=== PATIENT | male | born 1930 | race Caucasian/White ===

== ENCOUNTER 2019-01-12 10:21 | Day surgery (SDC) | payer MEDICARE ==
[2019-01-11 10:48] VITALS: BMI 25.0
--- NOTE | 2019-01-12 15:24 | OP ---
DATE OF PROCEDURE: 01/12/2019 PREPROCEDURE DIAGNOSIS: Intermittent dysphagia with regurgitation. The patient was on Plavix for his heart, which has been held for 6 days. POSTPROCEDURE DIAGNOSES: 1. Large hiatal hernia with the diaphragmatic hiatus at 44 cm from the teeth and the proximal gastric folds and Z-line denoting the lower esophagus at 35 cm, about a 9 cm hiatal hernia. There is a small paraesophageal component. There are no signs to suggest recurrent incarceration. No ischemic changes or ulcers or erosions in the hernia sac. 2. There is a shallow Schatzki's ring. This was dilated with 20-mm balloon with really no effect. The balloon could be blown up in its lumen. 3. He has mild tightness in the proximal esophagus, which was dilated with 18-mm Savary dilator. RECOMMENDATIONS: 1. I would restart him on a PPI and keep him on that daily and see if this helps his regurgitation symptoms and also I have asked him to eat and he should drink plenty of liquids with his meals. He will follow up in the office in 3-4 weeks to see if this has helped. I suspect the medicine will probably help more than the dilation as was nothing really tight to dilate. 2. Alternative would be to consider surgical repair of this, but with the patient's advanced age, cardiac disease, and the large size of the hernia, I would not recommend this. ANESTHESIA: TIVA. PROCEDURE IN DETAIL: After the patient was informed of the risk, benefits, and possible complications of endoscopy including perforation, reaction to medication, and aspiration, informed consent was obtained. The patient was brought to endoscopy suite, where he was sedated. A bite block was placed inside the orifice. The endoscope was advanced through the esophagus, stomach, and second and third portions of the duodenum. The esophagus was normal. There was no overt strictures. There was a shallow Schatzki's ring in the lower esophagus, which the scope was able to pass easily. This was at about 35 cm from the inside of orifice. There was a hiatal hernia with a partial paraesophageal component, but not a very large one. There were no signs of chronic ischemia or inflammatory changes or erosions or ulcers in the hiatal hernia sac. The hiatus was large and was at about 45 to 46 cm. This was a sliding-type hernia. The antrum of the stomach was normal as was the duodenum in 3rd and 4th portion. The scope was removed and attempted to dilate the esophagus with a 54-Kittitian Enciso dilator. In light of his dysphagia, it was made. However, we were not able to advance it very far before we would stop. I think this was because of the large hiatal hernia. Therefore, after just dilating the pharyngeal area with the Enciso, this was removed and put the scope back down. There was no effect of this dilation. At this point in time, a 20-mm balloon was used to dilate the GE junction. This showed no effect on 2nd look, but there was minimal resistance to that maneuver. The scope was removed. The patient tolerated the procedure well. There were no complications. Job ID: [id number]
[2019-01-12] MEDS ORDERED: PROPOFOL 200 MG/20 ML VIAL ONE (16:28)
[2019-01-12] MEDS ORDERED: ePHEDrine 50 MG/ML VIAL ONE (16:28)
[2019-01-12] MEDS ORDERED: PHENYLEPHRINE-NS 100 MCG/ML 10 ML SYRINGE ONE (16:28)
== END 2019-01-12 15:25 | disposition home or self-care (01) ==
LOC: SDC 10:21
PROVIDERS: ATTEND Internal Medicine Gastroenterology
PROC: 0D758ZZ Dilation of Esophagus, Via Natural or Artificial Opening Endoscopic (ICD-10-PCS; principal; 2019-01-12)
DX: K22.2 Esophageal obstruction (principal); K44.9 Diaphragmatic hernia without obstruction or gangrene; E78.5 Hyperlipidemia, unspecified; I25.10 Atherosclerotic heart disease of native coronary artery without angina pectoris; I10 Essential (primary) hypertension; M19.90 Unspecified osteoarthritis, unspecified site; E78.00 Pure hypercholesterolemia, unspecified; Z79.02 Long term (current) use of antithrombotics/antiplatelets; Z79.82 Long term (current) use of aspirin; Z79.899 Other long term (current) drug therapy; Z88.5 Allergy status to narcotic agent; Z98.1 Arthrodesis status; Z95.1 Presence of aortocoronary bypass graft; Z98.890 Other specified postprocedural states
CPT/HCPCS: J2704; J3490

== ENCOUNTER 2019-07-29 21:26 | Inpatient (IN) | payer MEDICARE ==
[2019-07-29 21:55] LABS: #Lymphocytes 0.8 thou/uL (1.20-3.40); #Monocytes 0.4 thou/uL (0.11-0.59); #Neutrophils 4.6 thou/uL (1.40-6.50); %Basophils 0.8 % (0.0-1.0); %Eosinophils 0.6 % (0.0-10.0); %Lymphocytes 13.4 % (21.0-51.0); %Monocytes 6.8 % (0.0-10.0); %Neutrophils 78.5 % (42.0-75.0); Hemoglobin 12.7 g/dL (14.0-18.0); Mean Corpuscular HGB CONC 31.5 g/dL (32.0-36.0); Mean Corpuscular Hemoglobin 29.2 pg (27.0-31.0); Mean Corpuscular Volume 92.8 fL (78.0-98.0); Mean Platelet Volume 9.2 fL (7.4-10.4); Platelet Count 157 thou/uL (130-400); RBC Distribution Width 14.1 % (11.5-14.5); Red Blood Cell (RBC) Count 4.35 mill/uL (4.70-6.10); White Blood Cell (WBC) Count 5.9 thou/uL (4.8-10.8)
[2019-07-29 22:13] LABS: ALT (SGPT) 15 U/L (8-55); AST (SGOT) 23 U/L (5-34); Albumin 4.4 g/dL (3.4-4.8); Alkaline Phosphatase 109 U/L (40-110); Anion Gap 15 mmol/L (10-20); BUN (Urea Nitrogen) 23 mg/dL (8.4-25.7); Bilirubin, Total 2.2 mg/dL (0.2-1.2); CK (CPK) 278 U/L (30-200); Calc. Creatinine Clearance 0 mL/min (70-130); Calcium 9.2 mg/dL (7.8-10.44); Carbon Dioxide 24 mmol/L (23-31); Chloride 105 mmol/L (98-107); Estimated GFR-MDRD 46; Globulin 2.6 g/dL (2.4-3.5); Glucose 135 mg/dL (83-110); Lipase 47 U/L (8-78); Magnesium 1.8 mg/dL (1.6-2.6); Potassium 4.3 mmol/L (3.5-5.1); Sodium 140 mmol/L (136-145)
--- NOTE | 2019-07-29 22:18 | RAD ---
EXAM: CHEST ONE VIEW HISTORY: Chest pain which started this afternoon. COMPARISON: 12/31/2014 FINDINGS: Postsurgical changes related to CABG are again noted. The cardiac silhouette is enlarged. There is in creased density retrocardiac region with associated gas density likely related to hiatal hernia seen on prior study as well as CT abdomen on 09/30/2016. There is also persistent elevation of the lef t hemidiaphragm. There is volume loss at the left lung base. The right lung is clear. The pulmonary vasculature is within normal limits. Vascular calcifications are again seen in a tortuous thoracic ao rta. Postsurgical changes left shoulder are again seen. Left humeral head also appears high riding which may be attributable to chronic rotator cuff tear. Osteopenia is present. IMPRESSION: 1. No acute cardiopulmonary process. 2. Cardiomegaly. 3. Moderately large hiatal hernia with elevation left hemidiaphragm and subsequent volume loss left l bang base.
[2019-07-29 22:38] LABS: CKMB 11.2 ng/mL (0-6.6)
[2019-07-30] MEDS ORDERED: Furosemide 40 MG/4 ML VIAL ONE (00:30)
[2019-07-30] MEDS ORDERED: Enoxaparin Sodium 80 MG/0.8 ML SYRINGE ONE (00:30)
[2019-07-30 01:21] LABS: Bacteria/HPF None Seen HPF (None Seen); Bilirubin Negative (Negative); Blood, Urine Negative (Negative); Clarity Clear (Clear); Glucose, Urine (Dipstick) Normal (Negative); Leukocyte Negative Leu/uL (Negative); Nitrite Negative (Negative); Protein, Urine (Dipstick) 70 mg/dL (Neg-Trace); RBC/HPF 0-3 HPF (0-3); Squamous Epithelial None Seen HPF (0-3); Urobilinogen Normal mg/dL (Less than 2); WBC/HPF 0-3 HPF (0-3)
[2019-07-30 03:00] VITALS: BMI 24.9
[2019-07-30] MEDS ORDERED: traMADol HCl 50 MG TAB PO PRN (04:59)
[2019-07-30 05:38] LABS: Troponin I 0.104 ng/mL (< 0.028)
[2019-07-30 07:17] LABS: Troponin I 0.117 ng/mL (< 0.028)
[2019-07-30] MEDS: Phenazopyridine HCl 97.5 MG TABLET PO SCH ×3 (07:26→19:35)
--- NOTE | 2019-07-30 08:03 | CT ---
PRELIMINARY REPORT/[facility]/EMERGENCY AFTER HOURS PROCEDURE PROCEDURE: CTA Chest with IV Contrast Material . HISTORY: Chest pain. TECHNIQUE: Axial images were performed with multiplanar and 3-D (maximum intensity projection and rashad face-shaded) reconstructions. The patient was given iodinated nonionic IV contrast . COMPARISON: None . FINDINGS: Mild atherosclerotic calcifications aorta with moderate tortuosity and no aneurysm. Aorta is unopaci fied with contrast. No evidence of pulmonary embolus. Mediastinum and hilar regions show no masses or lymphadenopathy. Large hiatal hernia. Heart size upper limits of normal with no pericardial fluid. S mall bilateral pleural effusions. Compressive atelectasis LEFT lung base related to large hiatal her fercho. Linear scar versus discoid atelectasis both lung bases. No pulmonary consolidation or masses. Calcified pleural thickening LEFT hemithorax laterally may be related to previous trauma with some [place] deformity of the adjacent rib. Visualized upper abdomen shows elevated LEFT hemidiaphragm. Tiny s tones in the gallbladder. No acute bony abnormality. Previous sternotomy. Old compression fracture involving L1 vertebral body. IMPRESSION: No pulmonary embolus. Heart size upper limits of normal. Large hiatal hernia. Small bilat eral pleural effusions. Elevated LEFT midiaphragm. No pulmonary consolidation. ELECTRONICALLY SIGNED BY: Hilario Solares MD Jul 30, 2019 4:19:45 AM [employer] FINAL REPORT EMERGENT AFTER HOURS CTA OF THE CHEST WITH CONTRAST: FINDINGS/IMPRESSION: I agree with the findings and impression given in the preliminary report per [facility] physici an. 1. No pulmonary thromboembolism. 2. Bilateral pleural effusions. 3. Large hiatal hernia.
[2019-07-30] MEDS ORDERED: Nitroglycerin 0.4 MG TAB (25 Tab Bottle) PO PRN (08:05)
[2019-07-30] MEDS ORDERED: Acetaminophen 325 MG TAB PO PRN (08:05)
[2019-07-30] MEDS ORDERED: Ondansetron PF 4 MG/2 ML Vial IVP PRN (08:05)
[2019-07-30] MEDS ORDERED: Trospium 20 MG TAB PO SCH (09:00)
[2019-07-30] MEDS ORDERED: Lisinopril 10 MG TAB PO SCH (09:00)
[2019-07-30] MEDS ORDERED: Furosemide 20 MG TAB PO SCH (09:00)
[2019-07-30] MEDS ORDERED: Aspirin Chewable 81 MG TAB PO SCH (09:00)
[2019-07-30] MEDS ORDERED: Furosemide 40 MG/4 ML VIAL SLOW IVP SCH (09:00)
[2019-07-30] MEDS ORDERED: Aspirin 325 mg Enteric Coated Tablet PO SCH (09:00)
[2019-07-30] MEDS ORDERED: Regadenoson 0.4 MG/5 ML SYRINGE ONE (10:19)
[2019-07-30] MEDS ORDERED: Iopamidol-370 76% 500 ML 1 ML ONE (11:00)
--- NOTE | 2019-07-30 12:50 | HP ---
PRIMARY CARE PROVIDER: Dr. Dickson Solorzano. CHIEF COMPLAINT: Chest pain. HISTORY OF PRESENT ILLNESS: Mr. Castro is a pleasant 89-year-old gentleman, who was seen at [facility] on July 30, 2019. He reports that he was at [employer] yesterday around noon when he had a right-sided chest pain that lasted a few seconds. He describes it as a "prickly sensation," nonradiating, not accompanied by shortness of breath, on and off, no known aggravating or relieving factors. He denies any recent weight gain. He reports chronic bilateral lower extremity swelling. He denies any fevers or chills. He presented to the emergency room last night because of ongoing chest discomfort. REVIEW OF SYSTEMS: All systems were reviewed and found to be negative except for the pertinent positives mentioned above. PAST MEDICAL HISTORY: Nephrolithiasis, coronary artery disease, benign prostate hypertrophy, dyslipidemia, and hypertension. PAST SURGICAL HISTORY: Coronary artery bypass graft surgery in 1993, bilateral shoulder surgery, right knee surgery, spine surgery x3, and cardiac catheterization in December 2015. SOCIAL HISTORY: The patient denies tobacco use or recreational drug use. He drinks alcohol on a social basis. He lives at home alone. His approximately a year ago. He uses a cane. FAMILY HISTORY: His father from a myocardial infarction at age 62. ALLERGIES: NORCO. CURRENT MEDICATIONS: 1. Lisinopril 10 mg daily. 2. Lipitor 40 mg daily. 3. Toprol-XL 50 mg daily. 4. Aspirin 81 mg daily. 5. Isosorbide 30 mg daily. 6. Trazodone 100 mg daily. 7. Rapaflo 4 mg daily. 8. Plavix 75 mg daily. 9. Protonix 40 mg daily. 10. Lasix 20 mg daily. PHYSICAL EXAMINATION: GENERAL: On examination, Mr. Castro is awake and alert, not in acute distress. VITAL SIGNS: Blood pressure is 181/92, pulse rate 82, respiratory rate 18, and oxygen saturation 95% on room air. He is afebrile. EYES: Scleral icterus present. No conjunctival pallor. ENT: Moist mucosal membranes. No oropharyngeal erythema or exudates. NECK: Supple, nontender, and trachea is midline. RESPIRATORY: Accessory muscles of breathing are not active. Chest wall movements are symmetric bilaterally. LUNGS: Clear to auscultation without wheeze, rhonchi, or crepitations. CARDIOVASCULAR: S1 and S2 are heard, regular. Peripheral pulses palpable. ABDOMEN: Soft, nontender, and bowel sounds are heard. NEUROLOGIC: Cranial nerves II through XII are intact. MUSCULOSKELETAL: Power is 5/5 in all 4 extremities. SKIN: 1+ bilateral lower extremity edema. LYMPHATIC: No cervical lymphadenopathy. PSYCHIATRIC: Normal mood, normal affect. The patient is oriented to person, place, and time. LABORATORY DATA: Mr. Castro's labs and investigations were reviewed. I reviewed his electrocardiogram, which shows normal sinus rhythm, no ST changes to suggest acute coronary syndrome. He has a right bundle-branch block. I also reviewed his chest x-ray, which does not show any pulmonary infiltrates. He also had a CT angiogram of the chest, which did not show any evidence of pulmonary embolism. He had a large hiatal hernia and small bilateral pleural effusions. He had elevated left hemidiaphragm and no pulmonary consolidation. He has normal white count, normocytic anemia with hemoglobin 12.7, normal platelet count, elevated D-dimer of 1.06, normal sodium, normal potassium, elevated creatinine of 1.44, creatinine was 0.99 on October 08, 2016, indeterminate troponin-I of 0.125 at 9:43 p.m. yesterday, 0.117 at 6:42 a.m. today, elevated BNP of 1665, and elevated total bilirubin of 2.2. The rest of LFTs are unremarkable. ASSESSMENT AND PLAN: Mr. Castro is a pleasant 89-year-old gentleman, who was seen at [facility] on July 30, 2019. His problem list includes: 1. Chest pain: Mr. Castro is presenting with chest pain, which is atypical for acute coronary syndrome. Given his significant cardiac history, he will be admitted to the hospital for telemetry monitoring. I will also obtain pharmacologic stress test. Further management depending on outcome of the stress test. 2. Congestive heart failure: The patient has a history of diastolic dysfunction per echocardiogram done in October 2016. He does not appear to be in florid heart failure. However, he has already received some intravenous Lasix prior to my assessment. We will continue to monitor him. Repeat 2D echocardiogram has been ordered. This appears to be congestive heart failure, NYHA class II. 3. Acute kidney injury: The patient's creatinine is elevated compared to his previous creatinine level from October 08, 2016. We will continue to monitor labs. 4. Jaundice: The patient has elevated total bilirubin, could be secondary to hepatic congestion. We will need to follow up as outpatient. The remainder of LFTs are unremarkable. 5. Hypertension: Resume home medications, monitor vital signs and titrate antihypertensives as needed. We will hold lisinopril for now given renal insufficiency. 6. Benign prostate hypertrophy: Continue Rapaflo. Many thanks for allowing me to participate in your patient's care. Please feel free to contact me with any questions or concerns. LEVEL OF RISK: High. LEVEL OF COMPLEXITY: High. Job ID: [id number]
--- NOTE | 2019-07-30 15:09 | NM ---
EXAM: Nuclear medicine cardiac perfusion examination with ejection fraction HISTORY: Chest pain TECHNIQUE: Rest images: 9.0 mCi technetium 99m sestamibi Stress images: 32.0 mCi of technetium 9M sestamibi; Lexiscan COMPARISON: 05/28/2004 FINDINGS: Tomographic images: No fixed or reversible perfusion defects. Gated images: Normal wall motion and ejection fraction of 53%. EDV: 98 mL LHR: 0.8 TID: 1.0 IMPRESSION: No evidence of ischemia
[2019-07-30] MEDS: Aspirin Chewable 81 MG TAB PO SCH (16:18)
[2019-07-30] MEDS: Docusate 100 MG CAP PO SCH ×2 (16:19→20:26)
[2019-07-30] MEDS: Clopidogrel Bisulfate 75 MG TAB PO SCH (16:19)
[2019-07-30] MEDS: Enoxaparin Sodium 40 MG/0.4 ML SYRINGE SC SCH (16:20)
[2019-07-30] MEDS: Fluticasone Propionate Nasal Spray 16 gm Bottle NASAL SCH (16:20)
[2019-07-30] MEDS: Isosorbide Mononitrate (ER) 30 MG TAB PO SCH (16:21)
[2019-07-30] MEDS: Meloxicam 7.5 MG TAB PO SCH (16:21)
[2019-07-30] MEDS: traZODone HCl 50 MG TAB PO SCH (20:26)
[2019-07-30] MEDS: Atorvastatin Calcium 40 MG TAB PO SCH (20:26)
[2019-07-31 04:59] LABS: #Eosinphils 0.1 thou/uL (0.0-0.7); #Lymphocytes 0.6 thou/uL (1.20-3.40); #Monocytes 0.6 thou/uL (0.11-0.59); #Neutrophils 5.2 thou/uL (1.40-6.50); %Basophils 0.2 % (0.0-1.0); %Eosinophils 1.1 % (0.0-10.0); %Lymphocytes 9.2 % (21.0-51.0); %Monocytes 8.6 % (0.0-10.0); Hemoglobin 11.8 g/dL (14.0-18.0); Mean Corpuscular HGB CONC 31.6 g/dL (32.0-36.0); Mean Corpuscular Hemoglobin 29.1 pg (27.0-31.0); Mean Corpuscular Volume 92.3 fL (78.0-98.0); Mean Platelet Volume 9.2 fL (7.4-10.4); Platelet Count 152 thou/uL (130-400); RBC Distribution Width 14.1 % (11.5-14.5); Red Blood Cell (RBC) Count 4.04 mill/uL (4.70-6.10); White Blood Cell (WBC) Count 6.4 thou/uL (4.8-10.8)
[2019-07-31 05:11] LABS: Anion Gap 14 mmol/L (10-20); BUN (Urea Nitrogen) 21 mg/dL (8.4-25.7); Calc. Creatinine Clearance 43 mL/min (70-130); Calcium 8.8 mg/dL (7.8-10.44); Carbon Dioxide 28 mmol/L (23-31); Chloride 101 mmol/L (98-107); Estimated GFR-MDRD 56; Glucose 80 mg/dL (83-110); Potassium 3.7 mmol/L (3.5-5.1); Sodium 139 mmol/L (136-145)
[2019-07-31] MEDS: Silodosin 4 MG CAP PO SCH (08:50)
[2019-07-31] MEDS: Clopidogrel Bisulfate 75 MG TAB PO SCH (08:51)
[2019-07-31] MEDS: Aspirin Chewable 81 MG TAB PO SCH (08:51)
[2019-07-31] MEDS: Docusate 100 MG CAP PO SCH ×2 (08:51→19:57)
[2019-07-31] MEDS: Enoxaparin Sodium 40 MG/0.4 ML SYRINGE SC SCH (08:51)
[2019-07-31] MEDS: Fluticasone Propionate Nasal Spray 16 gm Bottle NASAL SCH (08:52)
[2019-07-31] MEDS: Isosorbide Mononitrate (ER) 30 MG TAB PO SCH (08:52)
[2019-07-31] MEDS: Meloxicam 7.5 MG TAB PO SCH (08:53)
[2019-07-31] MEDS: Phenazopyridine HCl 97.5 MG TABLET PO SCH ×2 (08:53→19:58)
[2019-07-31] MEDS: Furosemide 20 MG TAB PO SCH (08:58)
--- NOTE | 2019-07-31 16:21 | PDOC.HOSPP ---
- Subjective Encounter Date: 07/31/19 Encounter Time: 10:00 Subjective: Pt seen for followup re: urinary retention. Feels better. - Objective Vital Signs & Weight: Vital Signs (12 hours) Temp Pulse Resp BP Pulse Ox 07/31/19 15:05 98.5 F 69 18 100/59 L 95 07/31/19 11:44 98.6 F 66 18 102/58 L 96 07/31/19 08:39 98.5 F 73 18 107/58 L 96 Weight Weight 153 lb 4.8 oz I&O: 07/30/19 07/31/19 08/01/19 06:59 06:59 06:59 Intake Total 120 720 Output Total 1200 5900 [facility] -[id number] [id number] Result Diagrams: 07/31/19 04:36 07/31/19 04:36 Additional Labs: Labs and MARs reviewed by me EKG Reviewed by me: Yes (Tele; NSR) Hospitalist ROS - Review of Systems Cardiovascular: denies: chest pain, palpitations, orthopnea, paroxysmal noc. dyspnea, edema, light headedness Gastrointestinal: denies: nausea, vomiting, abdominal pain, diarrhea, constipation, melena, hematochezia Genitourinary: reports: retention - Medication Medications: Active Medications Generic Name Dose Route Start Last Admin Trade Name Freq PRN Reason Stop Dose Admin Aspirin 81 mg 07/30/19 09:00 07/31/19 08:51 Aspirin Chewable PO 81 mg DAILY BIENVENIDO Administration Atorvastatin Calcium 40 mg 07/30/19 21:00 07/30/19 20:26 Lipitor PO 40 mg HS BIENVENIDO Administration Clopidogrel Bisulfate 75 mg 07/30/19 09:00 07/31/19 08:51 Plavix PO 75 mg DAILY BIENVENIDO Administration Docusate Sodium 100 mg 07/30/19 09:00 07/31/19 08:51 Colace PO 100 mg BID BIENVENIDO Administration Enoxaparin Sodium 40 mg 07/30/19 09:00 07/31/19 08:51 Lovenox SC 40 mg 0900 BIENVENIDO Administration Fluticasone Propionate 0 gm 07/30/19 09:00 07/31/19 08:52 Flonase Nasal [place] NASAL 2 spr DAILY BIENVENIDO Administration Furosemide 20 mg 07/31/19 09:00 07/31/19 08:58 Lasix PO 20 mg DAILY BIENVENIDO Administration Isosorbide Mononitrate 30 mg 07/30/19 09:00 07/31/19 08:52 Imdur Er PO 30 mg QAM BIENVENIDO Administration Meloxicam 7.5 mg 07/30/19 09:00 07/31/19 08:53 Mobic PO 7.5 mg DAILY BIENVENIDO Administration Metoprolol Succinate 50 mg 07/30/19 09:00 07/31/19 08:53 Toprol Xl PO 50 mg QAM BIENVENIDO Administration Phenazopyridine HCl 97.5 mg 07/31/19 09:00 07/31/19 08:53 Azo Standard PO 97.5 mg BID BIENVENIDO Administration Silodosin 4 mg 07/31/19 08:00 07/31/19 08:50 Rapaflo PO 4 mg QAM-WM BIENVENIDO Administration Sodium Chloride 10 ml 07/30/19 09:00 07/31/19 08:53 Flush - Normal Saline IVF 10 ml Q12HR BIENVENIDO Administration Tramadol HCl 50 mg 07/30/19 04:59 07/30/19 05:20 Ultram PO 50 mg Q6H PRN Administration Pain Trazodone HCl 50 mg 07/30/19 21:00 07/30/19 20:26 Desyrel PO 50 mg HS BIENVENIDO Administration - Exam General Appearance: NAD Eye: anicteric sclera ENT: moist mucosa Neck: supple Heart: RRR Respiratory: CTAB Gastrointestinal: soft, non-tender Extremities: no edema Musculoskeletal: normal tone, normal strength Psychiatric: normal affect, normal behavior Hosp A/P (1) Urinary retention Code(s): R33.9 - RETENTION OF URINE, UNSPECIFIED Status: Acute (2) CAD (coronary artery disease) Code(s): I25.10 - ATHSCL HEART DISEASE OF [place] CORONARY ARTERY W/O ANG PCTRS Status: Chronic (3) HLD (hyperlipidemia) Code(s): E78.5 - HYPERLIPIDEMIA, UNSPECIFIED Status: Chronic (4) HTN (hypertension) Code(s): I10 - ESSENTIAL (PRIMARY) HYPERTENSION Status: Chronic (5) Chest pain Code(s): R07.9 - CHEST PAIN, UNSPECIFIED Status: Resolved - Plan plan discussed w/ family, case catheter, out of bed/ambulate Await urology recommendations re: urinary retention. Chest pain resolved. Stress test negative. HTN controlled. Continue Lipitor.
[2019-07-31] MEDS: Atorvastatin Calcium 40 MG TAB PO SCH (19:57)
[2019-07-31] MEDS: traZODone HCl 50 MG TAB PO SCH (19:58)
--- NOTE | 2019-07-31 21:32 | CON ---
DATE OF CONSULTATION: 07/31/2019 REASON FOR CONSULT: Urinary retention. CHIEF COMPLAINT: Difficulty voiding. HISTORY OF PRESENT ILLNESS: This is an 89-year-old male who was admitted yesterday for chest pains and required cardiac evaluation. Shortly after being admitted, he developed an inability to urinate. He initially had in- and out catheter performed a few times. However, I was contacted and I advised that a Patel catheter replaced to allow bladder rest. Speaking with the patient, the catheter has been in since yesterday, and he is not having any discomfort from it. He is very happy with the catheter draining. He does have a history of acute retention after surgery at [facility] several years ago. He has had to perform intermittent catheterization in the past and is comfortable with this. Otherwise, he is on Rapaflo previously prescribed by Dr. Adams who followed him for many years. He tells me he had a prostate biopsy which was negative with Dr. Adams. Otherwise, he has not required any prostate surgeries. Today, he denies penile pain, suprapubic pain, flank pain, nausea, vomiting, fevers or chills, night sweats, or difficulty breathing. REVIEW OF SYSTEMS: Ten-point review of systems, negative except as mentioned above. PAST MEDICAL HISTORY: Coronary artery disease, enlarged prostate, dyslipidemia, and hypertension. PAST SURGICAL HISTORY: Cardiac cath, knee surgery, back surgery, CABG, and shoulder surgeries. SOCIAL HISTORY: No substance abuse. 1 year ago. FAMILY HISTORY: Reviewed, noncontributory. ALLERGIES: NORCO. MEDICATIONS: Reviewed. Pertinent for Rapaflo. PHYSICAL EXAMINATION: GENERAL: No acute distress, conversant. HEENT: Eyes, sclerae anicteric, normal movements. Head; normocephalic, atraumatic. NECK: Supple. Trachea midline. RESPIRATORY: Unlabored breathing, symmetric chest expansion. HEART: Regular rate and rhythm. ABDOMEN: Soft, nontender, and nondistended. : No flank pain, no suprapubic pain, Patel catheter in good position, draining clear urine. MUSCULOSKELETAL: Good strength throughout. SKIN: Warm and dry. EXTREMITIES: Without clubbing, cyanosis, or edema. NEUROLOGIC: Alert and oriented x3. PSYCHIATRIC: Normal mood and affect. LABORATORY DATA: Reviewed, showing white count 6.4, and creatinine 1.22 down from 1.44 on admission, possibly due to retention. Urinalysis; negative other than protein. ASSESSMENT AND PLAN: 1. Enlarged prostate with lower urinary tract symptoms, acute urinary retention. 2. Patel catheter will remain for now. When the patient is getting ready to discharge home, we can consider leaving the catheter until I see him in my office or he can have the catheter removed as long as he is willing to perform intermittent catheterization. He and I will discuss this further as a discharge plan becomes apparent. Greater than 70 minutes spent in direct patient care. Job ID: [id number]
[2019-08-01 04:35] LABS: #Eosinphils 0.1 thou/uL (0.0-0.7); #Lymphocytes 0.8 thou/uL (1.20-3.40); #Monocytes 0.4 thou/uL (0.11-0.59); #Neutrophils 3.1 thou/uL (1.40-6.50); %Basophils 0.9 % (0.0-1.0); %Eosinophils 2.2 % (0.0-10.0); %Monocytes 9.6 % (0.0-10.0); %Neutrophils 70.4 % (42.0-75.0); Hemoglobin 11.7 g/dL (14.0-18.0); Mean Corpuscular HGB CONC 31.6 g/dL (32.0-36.0); Mean Corpuscular Hemoglobin 29.2 pg (27.0-31.0); Mean Corpuscular Volume 92.3 fL (78.0-98.0); Mean Platelet Volume 9.5 fL (7.4-10.4); Platelet Count 151 thou/uL (130-400); RBC Distribution Width 14.1 % (11.5-14.5); White Blood Cell (WBC) Count 4.5 thou/uL (4.8-10.8)
[2019-08-01 04:57] LABS: Anion Gap 12 mmol/L (10-20); BUN (Urea Nitrogen) 27 mg/dL (8.4-25.7); Calc. Creatinine Clearance 41 mL/min (70-130); Calcium 8.5 mg/dL (7.8-10.44); Carbon Dioxide 30 mmol/L (23-31); Chloride 100 mmol/L (98-107); Estimated GFR-MDRD 58; Glucose 85 mg/dL (83-110); Potassium 3.6 mmol/L (3.5-5.1); Sodium 138 mmol/L (136-145)
[2019-08-01] MEDS: Clopidogrel Bisulfate 75 MG TAB PO SCH (09:13)
[2019-08-01] MEDS: Silodosin 4 MG CAP PO SCH (09:13)
[2019-08-01] MEDS: Aspirin Chewable 81 MG TAB PO SCH (09:13)
[2019-08-01] MEDS: Docusate 100 MG CAP PO SCH (09:13)
[2019-08-01] MEDS: Meloxicam 7.5 MG TAB PO SCH (09:14)
[2019-08-01] MEDS: Furosemide 20 MG TAB PO SCH (09:14)
[2019-08-01] MEDS: Fluticasone Propionate Nasal Spray 16 gm Bottle NASAL SCH (09:14)
[2019-08-01] MEDS: Enoxaparin Sodium 40 MG/0.4 ML SYRINGE SC SCH (09:14)
[2019-08-01] MEDS: Isosorbide Mononitrate (ER) 30 MG TAB PO SCH (09:14)
[2019-08-01] MEDS: Phenazopyridine HCl 97.5 MG TABLET PO SCH (09:15)
[2019-08-01 16:18] VITALS: BP 116/68; TEMP 97.9
--- NOTE | 2019-08-01 16:18 | PRG ---
DATE OF SERVICE: 08/01/2019 CHIEF COMPLAINT: Urinary retention. SUBJECTIVE: No acute events overnight. The patient feels that he is in his normal state of health. He does not find the catheter uncomfortable, but would like it removed so that he can perform CIC. He denies suprapubic pain, flank pain, nausea, vomiting, fevers, or chills. OBJECTIVE: VITAL SIGNS: Afebrile. Vitals are stable. GENERAL: Good urine output. No acute distress, conversant. HEENT: Head; normocephalic, atraumatic. LUNGS: Breathing nonlabored. Symmetric chest expansion. HEART: Regular rate and rhythm. ABDOMEN: Soft, nontender, nondistended. : Normal with Patel catheter draining light yellow urine. No flank tenderness. SKIN: Warm and dry. NEUROLOGIC: Alert and oriented x3. LABORATORY DATA: Laboratory values reviewed. White count 4.5. Creatinine 1.19. ASSESSMENT AND PLAN: 1. Acute urinary retention, lower urinary tract symptoms due to enlarged prostate. 2. Continue alfuzosin. 3. The patient can have his Patel catheter removed and will discharge to perform clean intermittent catheterization with a 12-Danish catheter 4 times per day. He has performed this previously with success and we reviewed how to perform clean intermittent catheterization safely today. We will follow up in 1 to 2 weeks to check a postvoid residual and decide when he can stop performing clean intermittent catheterization. All the patient's questions were answered. Job ID: [id number]
--- NOTE | 2019-08-02 01:28 | DIS ---
DATE OF ADMISSION: 07/30/2019 DATE OF DISCHARGE: 08/01/2019 PRIMARY CARE PROVIDER: Dickson Solorzano MD DISCHARGE DIAGNOSES: 1. Chest pain. 2. Chest pain most likely secondary to musculoskeletal etiology. 3. Urinary retention. 4. Acute kidney injury. 5. Chronic diastolic congestive heart failure, NYHA class II. CONDITION OF PATIENT ON THE DAY OF DISCHARGE: Stable. I assessed Mr. Castro on the day of discharge. He denies any chest pain or shortness of breath. Vital signs are stable. S1 and S2 are heard, regular. Lungs are clear to auscultation bilaterally. DISCHARGE MEDICATIONS: No change was made to his pre-admission home medications as dictated on my history and physical note dated July 30, 2019. CONSULTATIONS DURING THIS HOSPITALIZATION: Urology, Feroz Zelaya MD HOSPITAL COURSE: Mr. Castro is a pleasant 89-year-old gentleman, who was admitted to [facility] on July 30, 2019, for chest pain and urinary retention. Please refer to my history and physical note dated July 30, 2019, for further details. He had nuclear stress test, which did not show any evidence of ischemia. He also had 2D echocardiogram, which showed left ventricular ejection fraction of 50% to 55%, moderate concentric left ventricular hypertrophy, moderately dilated left atrium, moderate mitral regurgitation, moderately thickened trileaflet aortic valve with decreased excursion, mild to moderate aortic stenosis, moderate tricuspid regurgitation, and mildly elevated pulmonary artery pressure. He was also seen by Urology Service for urinary retention. He was given the option of either going home on Patel catheter and following up with Urology Service or self catheterization. He has performed self catheterization in the past and wished to self-catheterize. He is being discharged home in a stable condition. Urology Service has notified me that they will drop of supplies needed for his self catheterization. POST ACUTE CARE FOLLOWUP: With primary care provider in 3 days' time and with urologist in 2 weeks' time. DIET: Heart healthy. ACTIVITY: No restrictions. DISCHARGE DESTINATION: Home. TIME SPENT: Total amount of time spent coordinating this discharge: 31 minutes. Job ID: [id number]
== END 2019-08-01 16:25 | disposition home or self-care (01) | DRG 313 ==
LOC: ERS 21:26 → 2NO 07-30 02:33
PROVIDERS: ADMIT Family Medicine; ATTEND Family Medicine
DX: R07.89 Other chest pain (principal); N17.9 Acute kidney failure, unspecified; R17 Unspecified jaundice; I50.32 Chronic diastolic (congestive) heart failure; I25.10 Atherosclerotic heart disease of native coronary artery without angina pectoris; E78.5 Hyperlipidemia, unspecified; Z95.1 Presence of aortocoronary bypass graft; Z88.5 Allergy status to narcotic agent; Z79.02 Long term (current) use of antithrombotics/antiplatelets; Z79.899 Other long term (current) drug therapy; N40.1 Benign prostatic hyperplasia with lower urinary tract symptoms; I11.0 Hypertensive heart disease with heart failure
CPT/HCPCS: 36415; 71045; 71275; 78452; 80048; 80053; 81003; 81015; 82550; 82553; 83690; 83735; 83880; 84484; 85025; 85379; 93005; 93017; 93306; 94760; A9500; J1650; J1940; J2785; Q9967

== ENCOUNTER 2019-11-24 17:52 | Inpatient (IN) | payer MEDICARE ==
--- NOTE | 2019-11-24 18:35 | CT ---
Exam: Head CT without contrast HISTORY: Fall. Trauma. Pain. COMPARISON: none FINDINGS: Hemorrhage: Subdural hematoma along the left tentorium, left parafalcine region and along the left fr ontal convexity and left temporal convexity Brain parenchyma: Cortical palumbo-white matter differentiation is preserved. No mass effect or midline shift. Basilar cisterns are patent.Chronic small vessel ischemic changes of the white matter Ventricular system: Ventricles and sulci are patent and symmetric. Calvarium: No calvarial fractures. Sinuses and mastoid air cells: Adequate aeration. Additional findings: Extensive right periorbital and facial soft tissue swelling and hematoma. IMPRESSION: Multifocal posttraumatic subdural hematomas. Results of study discussed with Dr. Jc 11/24/2019 at 6:34 PM Code CR Transcribed Date/Time: 11/24/2019 6:37 PM
--- NOTE | 2019-11-24 18:54 | CT ---
CT CERVICAL SPINE. 11/24/19 Axial tomograms are obtained with multiplanar reconstructions. INDICATIONS: Fall with injury to neck. FINDINGS: Severe degenerative changes are noted in the cervical spine. Degenerative disc changes with loss of d isc space are prominent at theC4-5, C5-6 andC6-7 levels. There is anterior subluxation at C4-5 measur ed at 3 mm. There is an old posterior subluxation ofC1 on C2 measured at 5 mm. Some of this may be po sitional. There is no evidence of acute fracture identified. Posterior spondylosis produces impingement on the spinal canal at multiple levels with foraminal stenosis at several levels. IMPRESSION: Severe degenerative changes. Mild subluxation at C1-2. Mild anterior subluxation at C4-5. No acute fr acture identified. POS: ABBIE
[2019-11-24] MEDS ORDERED: Adacel (T-DAP) 0.5 ML SYRINGE ONE (18:56)
--- NOTE | 2019-11-24 18:58 | CT ---
CT FACIAL BONES: 11/24/19 Soft tissue windows show subcutaneous edema over the right orbit and frontal bone. Edema extends into the nasolabial folds on the right and along the right nasal bone. There is slight deformity of the nasal ridge. I cannot exclude fracture of the distal nasal ridge. No significant depression. Orbits appear intact. Lamina papyracea appear intact. The paranasal sinuses are well aerated. The max illa appears intact. The zygoma appear intact. Zygomatic arches are intact. Mandible appears intact. Frontal bone is intact. IMPRESSION: 1. Soft tissue swelling over the right frontal bone and right orbit. 2. Slight deformity of the nasal ridge distally. There is evidence of fracture at this location. Age is indeterminate. 3. No other evidence of facial bone fracture. POS: [facility]
[2019-11-24 19:29] LABS: #Lymphocytes 0.6 thou/uL (1.20-3.40); #Monocytes 0.5 thou/uL (0.11-0.59); #Neutrophils 5.4 thou/uL (1.40-6.50); %Basophils 0.6 % (0.0-1.0); %Eosinophils 0.3 % (0.0-10.0); %Lymphocytes 8.4 % (21.0-51.0); %Monocytes 8.2 % (0.0-10.0); %Neutrophils 82.5 % (42.0-75.0); Hemoglobin 10.9 g/dL (14.0-18.0); Mean Corpuscular Hemoglobin 28.9 pg (27.0-31.0); Mean Corpuscular Volume 93.3 fL (78.0-98.0); Mean Platelet Volume 9.1 fL (7.4-10.4); Platelet Count 142 thou/uL (130-400); RBC Distribution Width 15.6 % (11.5-14.5); Red Blood Cell (RBC) Count 3.77 mill/uL (4.70-6.10); White Blood Cell (WBC) Count 6.5 thou/uL (4.8-10.8)
[2019-11-24 19:35] LABS: INR-International Normal Ratio 1.1; PTT 28.6 SEC (22.9-36.1); Prothrombin Time 14.5 sec (12.0-14.7)
[2019-11-24 19:51] LABS: ALT (SGPT) 13 U/L (8-55); AST (SGOT) 23 U/L (5-34); Albumin 3.8 g/dL (3.4-4.8); Alkaline Phosphatase 95 U/L (40-110); Anion Gap 15 mmol/L (10-20); BUN (Urea Nitrogen) 22 mg/dL (8.4-25.7); Bilirubin, Total 1.8 mg/dL (0.2-1.2); Calc. Creatinine Clearance 0 mL/min (70-130); Calcium 8.5 mg/dL (7.8-10.44); Carbon Dioxide 21 mmol/L (23-31); Chloride 106 mmol/L (98-107); Estimated GFR-MDRD 58; Globulin 2.3 g/dL (2.4-3.5); Glucose 95 mg/dL (83-110); Lipase 28 U/L (8-78); Potassium 4.5 mmol/L (3.5-5.1); Protein, Total 6.1 g/dL (5.8-8.1); Sodium 137 mmol/L (136-145)
[2019-11-24] MEDS ORDERED: Docusate 100 MG CAP PO PRN (19:58)
[2019-11-24] MEDS ORDERED: Ondansetron PF 4 MG/2 ML Vial IVP PRN ×2 (19:58→21:28)
[2019-11-24] MEDS ORDERED: Acetaminophen 325 MG TAB PO PRN (19:58)
[2019-11-24] MEDS ORDERED: Dextrose 50% Abboject 50 ML SYRINGE SLOW IVP PRN (21:28)
[2019-11-24] MEDS ORDERED: Dextrose 5% in Water 1,000 ML IV PRN (21:28)
[2019-11-24] MEDS ORDERED: hydrALAZINE 20 MG/ML VIAL SLOW IVP PRN (21:28)
[2019-11-24] MEDS ORDERED: Sodium Chloride 0.9% 1,000 ML IV SCH (21:30)
[2019-11-24 21:58] VITALS: BMI 22.8
--- NOTE | 2019-11-24 22:50 | CT ---
Exam: Head CT without contrast HISTORY: Follow-up subdural hematoma COMPARISON: 11/24/2019 FINDINGS: Hemorrhage: Essentially stable subdural hematomas. Brain parenchyma: Cortical palumbo-white matter differentiation is preserved. No mass effect or midline shift. Basilar cisterns are patent.Stable white matter hypodensities due to chronic small vessel ischemic change Ventricular system: Ventricles and sulci are patent and symmetric. Calvarium: Intact. Sinuses and mastoid air cells: Adequate aeration. IMPRESSION: Stable subdural hematomas.
--- NOTE | 2019-11-25 00:01 | HP ---
SUBJECTIVE: The patient reported today to the emergency department after he fell in his backyard. The patient was using a walker at home. He was trying to go out of his door and subsequently fell onto his right side. He does take Plavix. He denies loss of consciousness. He states that afterwards he was able to get up, he has actually ambulated with the nurse here in the emergency department using a cane. He does have a large periorbital hematoma, as well as a hematoma above his right lip with no significant laceration. He is alert and oriented x4, and his GCS is 15. He lives at home alone and uses a walker. His about a year ago. He denies numbness and tingling in his bilateral upper and lower extremities. Denies neck pain. REVIEW OF SYSTEMS: All additional 10-point review of systems negative except as indicated above. PAST MEDICAL HISTORY: Nephrolithiasis, CAD, BPH, dyslipidemia, hypertension, CHF with diastolic dysfunction. Last echo was done on July 30 of this year with EF of 50% to 55%. PAST SURGICAL HISTORY: CABG, bilateral shoulder surgeries, right knee surgery, spinal surgery x3. SOCIAL HISTORY: The patient denies tobacco, drug, or alcohol abuse. He lives at home alone, uses a walker or a cane to get around, and he still drives. MEDICATIONS: The patient reports that he takes Lasix, but is not aware of the names or dosages of the rest of his medications and we will contact his pharmacy for his medications. He left his list at home. ALLERGIES: HYDROCODONE. PHYSICAL EXAMINATION: VITAL SIGNS: Temperature 98.7, pulse 70, respirations 20, oxygen saturation 98 % on room air, and blood pressure 143/75. PRIMARY SURVEY: Airway intact. Adequate breath sounds bilaterally. 2+ pulses in the bilateral radials, femorals, and DPs. GCS 15. Gross motor and sensation intact. No laceration. He does have a right periorbital bruising and swelling, as well as bruising and swelling to his upper lip with a small abrasion right above his lip. No significant bleeding. SECONDARY SURVEY: HEAD: Normocephalic and atraumatic. No gross palpable skull deformities or tenderness. EYES: Pupils 3-2, equal, round, reactive to light bilaterally. ENT: No hemotympanum. No epistaxis. No septal hematoma. Midface, stable to manipulation. No blood in the oropharynx. Dentition is intact. No anterior neck injury/crepitus/tenderness. He does have significant right periorbital swelling and bruising, as well as a large bruise to the upper lip with an abrasion above the lip. C-SPINE: No step-offs or deformities. Nontender. C-collar not in place. CHEST: Nontender. No crepitus. No abrasions or ecchymosis. Equal chest movement. ABDOMEN: Soft, nontender, and nondistended. PELVIS: Stable to palpation. Nontender. RECTAL: Deferred. GENITOURINARY: Deferred. EXTREMITIES: The patient has an abrasion over the right knee. No significant bruising. No other deformity. 2+ pulses in bilateral radials, femorals, and DPs. BACK/SPINE: No step-offs or deformities or tenderness to palpation of the thoracic or lumbar spine. No abrasions or ecchymosis noted. NEUROLOGIC: 5/5 strength in the bilateral account services analyst, plantar flexion, dorsiflexion. Gross normal sensation x4 extremities. LABORATORY FINDINGS: White count 6.5, hemoglobin 10.9, hematocrit 35.2, platelets 142. INR 1.1. Sodium 137, potassium 4.5, chloride 106, bicarb 21, BUN 22, creatinine 1.18, glucose 95, lactic acid 1.2, total bilirubin 1.8, AST 23, ALT 13, alkaline phosphatase 95. DIAGNOSTIC FINDINGS: CT scan of the brain demonstrates multifocal posttraumatic subdural hematoma. CT scan of the C-spine demonstrates severe degenerative changes, mild subluxation of C1-C2, mild anterior subluxation at C4-C5. No acute fracture identified. CT scan of the facial bones demonstrates soft tissue swelling overlying the right frontal bone and right orbit. Slight deformity of the nasal bridge distally. There is evidence of fracture at this location, age is indeterminate. No other evidence of facial fracture. ASSESSMENT: 1. Status post mechanical fall on Plavix. 2. Multifocal subdural hemorrhages. 3. Chronic C-spine subluxations. 4. History of nephrolithiasis, coronary artery disease, BPH, dyslipidemia, hypertension, congestive heart failure with diastolic dysfunction. Last echo completed on 07/30/2019 demonstrated EF of 50% to 55%, coronary artery bypass grafting. PLAN: The patient will be admitted to the [facility] per the recommendations of Dr. Gabriel with Neurosurgery. We will complete q.2 hour neuro checks. Repeat CT scan per recommendations of Neurosurgery. Close hemodynamic monitoring. Head of the bed at 30 degrees. N.p.o. Maintenance IV fluids with normal saline at 70 an hour for a total of 1 L. Repeat blood work in the morning. Speech Language Pathology to evaluate the patient tomorrow for cognitive evaluation. We will also follow up the recommendations of PT/OT for possible inpatient rehab placement for a short while. This patient was discussed with Dr. Gooden before this dictation. Job ID: [id number] MTDD
[2019-11-25] MEDS: Acetaminophen 500 MG TAB PO SCH ×3 (00:51→09:06)
--- NOTE | 2019-11-25 02:44 | CON ---
DATE OF CONSULTATION: 11/24/2019 REASON FOR CONSULTATION: Subdural hematoma. HISTORY OF PRESENT ILLNESS: Mr. Castro is an 89-year-old gentleman, who presents to the emergency department with a chief complaint of fall. He states he was using his walker and it got away from him. When he reached for it and fell down on his face. The patient denies losing consciousness. He has right eye edema over the right frontal bone and right orbit. He denies any weakness in his upper or lower extremities. He does have edema over his upper lip and abrasions on his right hand. MEDICATIONS: 1. Lisinopril 10 mg. 2. Lipitor 40 mg. 3. Toprol-XL 50 mg. 4. Aspirin 81 mg. 5. Isosorbide 30 mg. 6. Trazodone 100 mg. 7. Rapaflo 4 mg. 8. Plavix 75 mg. 9. Protonix 40 mg. 10. Furosemide 20 mg. MEDICAL HISTORY: Kidney stones, CAD, BPH, hyperlipidemia, high cholesterol, hypertension. SURGICAL HISTORY: Triple bypass, 3 back surgeries, bilateral shoulder surgery, right knee replacement. SOCIAL HISTORY: He denies smoking, alcohol, or illicit drugs. FAMILY HISTORY: Father, heart condition, at 62. Mother of old age. Ten brothers and sisters are alive and well. REVIEW OF SYSTEMS: CONSTITUTIONAL: Denies fever or chills. ENT: Denies change in vision or hearing. CARDIAC: Denies chest pain, shortness of breath, diaphoresis. PULMONARY: Denies shortness of breath, cough, hemoptysis. GI: Denies abdominal pain, nausea, vomiting, diarrhea, change in stool formation and consistency. : Denies trouble with urination, frequency of urination, bloody urine. SKIN: Denies skin rash, bruising, bleeding, skin masses. MUSCULOSKELETAL: As per history of present illness. NEUROLOGICAL: As per history of present illness. PSYCHOLOGICAL: Denies anxiety, depression, or behavior changes. PHYSICAL EXAMINATION: VITAL SIGNS: Blood pressure 134/77, heart rate is 68, O2 of 97%, temperature 98.7, respiratory rate was 18. HEENT: Head normocephalic. Bruising of the upper lip with edema. Edema of the right eye, which is swollen shut. Eyes, pupils equal, round, and reactive to light. Extraocular muscles are intact. ENT, normal. NECK: Soft, supple. No masses are noted. Range of motion is intact and nonpainful. NEUROLOGICAL: Awake, alert, and oriented x3. Attention, fund of knowledge normal. Cranial nerves grossly intact. EXTREMITIES: Upper extremities, good strength in the deltoids, biceps, triceps, wrist extensions, finger extensions, finger intrinsics. Sensations equal bilaterally. Reflexes symmetric. Lower extremities, good strength in the iliopsoas, quadriceps, hamstrings, anterior tib, EHL, gastrocnemius. There is no area of dermatomal sensory loss. The reflexes are symmetric. The toes are downgoing. Gait and station not tested. IMAGING: Brain CT, subdural hematoma. LABORATORY DATA: White blood cells 6.5, platelets 142. INR 1.1. Sodium 137. PLAN: Re-scan at 10:30, and if the small tentorial SDH is larger than the earlier scan, we will give 1 unit of platelets. Then, re-scan in the a.m. If scan shows improvement or no change, we will transfer care to Trauma Service and he can move to the floors. Supportive care, no Plavix for 2 weeks. We will have him follow up in 2 to 3 weeks and re-scan his brain. Job ID: [id number] [facility]
[2019-11-25 04:10] LABS: #Lymphocytes 0.7 thou/uL (1.20-3.40); #Monocytes 0.5 thou/uL (0.11-0.59); #Neutrophils 5.1 thou/uL (1.40-6.50); %Basophils 0.5 % (0.0-1.0); %Eosinophils 0.4 % (0.0-10.0); %Lymphocytes 10.9 % (21.0-51.0); %Monocytes 8.3 % (0.0-10.0); %Neutrophils 79.9 % (42.0-75.0); Hemoglobin 10.3 g/dL (14.0-18.0); Mean Corpuscular HGB CONC 30.9 g/dL (32.0-36.0); Mean Corpuscular Hemoglobin 28.8 pg (27.0-31.0); Mean Platelet Volume 9.7 fL (7.4-10.4); Platelet Count 139 thou/uL (130-400); RBC Distribution Width 15.6 % (11.5-14.5); Red Blood Cell (RBC) Count 3.58 mill/uL (4.70-6.10); White Blood Cell (WBC) Count 6.3 thou/uL (4.8-10.8)
[2019-11-25 04:39] LABS: Anion Gap 10 mmol/L (10-20); BUN (Urea Nitrogen) 21 mg/dL (8.4-25.7); Calc. Creatinine Clearance 46 mL/min (70-130); Calcium 8.5 mg/dL (7.8-10.44); Carbon Dioxide 26 mmol/L (23-31); Chloride 108 mmol/L (98-107); Estimated GFR-MDRD 66; Glucose 84 mg/dL (83-110); Magnesium 1.8 mg/dL (1.6-2.6); Phosphorus 3.1 mg/dL (2.3-4.7); Potassium 4.2 mmol/L (3.5-5.1); Sodium 140 mmol/L (136-145)
[2019-11-25] MEDS: levETIRAcetam 500 MG TAB PO SCH ×2 (05:39→09:05)
--- NOTE | 2019-11-25 07:14 | CT ---
PRELIMINARY REPORT/[facility]/EMERGENCY AFTER HOURS PROCEDURE EXAM: CT Head Without Intravenous Contrast. CLINICAL HISTORY: F/U ICH TECHNIQUE: Axial computed tomography images of the head/brain without intravenous contrast. COMPARISON: CT - CT BRAIN WO CON - 11/24/2019 10:44 PM CDT FINDINGS: BRAIN: Parafalcine subdural hematoma is present, unchanged in size measuring approximately 3 mm. Trace subdu ral hematoma is present about left frontal region, unchanged from prior exam measuring less than 2 mm. Subdural along the medial aspect of the left middle cranial fossa and along the left tentorium is stable. Patient demonstrates. Baseline of cerebral atrophy and small vessel ischemic disease. VENTRICLES: No hydrocephalus. ORBITS: The orbits are unremarkable. SINUSES AND MASTOIDS: The paranasal sinuses and mastoid air cells are clear. SOFT TISSUES: Right periorbital soft tissue swelling is present. BONES: No acute skull fracture. IMPRESSION: Stable subdural hematomas. ELECTRONICALLY SIGNED BY: Tonie Tineo MD November 25, 2019 5:22:58 AM CDT This report is intended for review by the ordering physician only, in accordance of law. If you recei ve this report in error, please call [facility] at [phone]. FINAL REPORT Exam: Head CT without contrast HISTORY: Trauma. Intracranial hemorrhage. Follow-up exam. COMPARISON: 11/24/2019 FINDINGS: Hemorrhage: Redemonstration of stable subdural hematomas. No new parenchymal hemorrhage or new extra- axial hematoma Brain parenchyma: Stable appearance of the brain parenchyma Ventricular system: Stable configuration of the ventricular system Calvarium: Intact calvarium. Stable posttraumatic changes in the soft tissues Sinuses and mastoid air cells: Adequate aeration. IMPRESSION: 1. This report is in agreement with the report by [facility]. 2. Stable subdural hematoma/intracranial hemorrhage. Transcribed Date/Time: 11/25/2019 7:23 AM
[2019-11-25 07:21] VITALS: TEMP 97.7
--- NOTE | 2019-11-25 07:40 | PRG ---
DATE OF SERVICE: 11/25/2019 I personally interviewed and examined the patient, agreed with documentation of Fazal Fontana PA-C, dated 11/24/2019. Briefly, Álvaro Castro is a very pleasant 89-year-old gentleman on Plavix, who had a fall yesterday. He had a facial/orbital fracture and a tiny tentorial subdural hematoma under the temporal lobe on the left side. There was no mass effect from it. The patient was on Plavix, so we did an early re-scan and another scan this morning. Since admission, there has been no neurological decline or new symptoms. Overnight, I do not see any fevers recorded. Blood pressures have been in the 120s to 130s. I do not find any new neurological deficits on his exam. The two subsequent scans do not show any increase in the amount of tentorial subdural hematoma. Thankfully, Mr. Castro's subdural was small and it is not causing mass effect. He does not need neurosurgical intervention for this. In two weeks, my office is going to arrange a CT scan. I would like him to be off Plavix if possible until after that scan shows complete resolution of the subdural. Job ID: [id number] MTDD
[2019-11-25] MEDS ORDERED: Polyethylene Glycol 3350 17 GM Packet PO SCH (09:00)
[2019-11-25] MEDS ORDERED: Senokot S 8.6-50 MG TAB PO SCH (09:00)
[2019-11-25 11:12] VITALS: BP 141/85
== END 2019-11-25 15:44 | disposition home or self-care (01) | DRG 86 ==
LOC: ERS 17:52 → IMCU/EMU 20:38
PROVIDERS: ADMIT Surgery; ATTEND Surgery
DX: S06.5X0A Traumatic subdural hemorrhage without loss of consciousness, initial encounter (principal); I50.32 Chronic diastolic (congestive) heart failure; I25.10 Atherosclerotic heart disease of native coronary artery without angina pectoris; N40.0 Benign prostatic hyperplasia without lower urinary tract symptoms; E78.5 Hyperlipidemia, unspecified; E78.00 Pure hypercholesterolemia, unspecified; I11.0 Hypertensive heart disease with heart failure; Z96.651 Presence of right artificial knee joint; M43.5X2 Other recurrent vertebral dislocation, cervical region; S01.111A Laceration without foreign body of right eyelid and periocular area, initial encounter; W18.39XA Other fall on same level, initial encounter; Z87.442 Personal history of urinary calculi
CPT/HCPCS: 36415; 70450; 70486; 72125; 80048; 80053; 83605; 83690; 83735; 84100; 85025; 85610; 85730; 86850; 86900; 86901; 90471; 90715; 93005

== ENCOUNTER 2019-12-09 15:39 | Outpatient (CLI) | payer MEDICARE ==
--- NOTE | 2019-12-09 16:33 | CT ---
CT BRAIN WITHOUT CONTRAST: 12/09/19 HISTORY: Follow-up subdural hematoma. COMPARISON: 11/24/19. FINDINGS: The subdural hematoma along the left tentorium, left parafalcine region and along the left frontal co nvexity and left temporal convexity seen on the previous study have resolved in the interim. Changes of cortical atrophy and chronic small vessel ischemic disease are again seen. The ventricular size is appropriate and the basilar cisterns patent. No acute infarct, hemorrhage, midline shift or abnormal extra-axial fluid collections are noted. The bony calvarium is intact. The visualized paranasal sinuses are well aerated. The right sided periorbi giovany soft tissue swelling demonstrates near complete resolution. IMPRESSION: No CT evidence of acute intracranial process. Interval resolution of subdural hematoma since 11/24/19. POS: [facility]
== END 2019-12-09 15:40 | disposition home or self-care (01) ==
LOC: BICCT 15:39
PROVIDERS: ATTEND Neurological Surgery
DX: I62.00 Nontraumatic subdural hemorrhage, unspecified (principal)
CPT/HCPCS: 70450